=== PATIENT | male | born 1950 | race Caucasian/White ===

== ENCOUNTER 2023-10-01 00:36 | Observation (INO) | payer OTHER ==
[2023-10-01 00:42] VITALS: BMI 25.7
[2023-10-01 01:44] LABS: BASO % 0.3 % (0-2.0); EOS % 0.4 % (0-4.5); HEMATOCRIT 44.7 % (35.4-49); HEMOGLOBIN 15.5 GM/dL (11.7-16.9); LYMPH % 5.7 % (8-40); MCH 30.4 pg (25.7-33.7); MCHC 34.6 g/dl (32.0-35.9); MEAN CELL VOLUME 87.8 fl (80-96); MONO % 5.5 % (3.8-10.2); NEUT % 88.1 % (42.8-82.8); PLATELET COUNT 167 10^3/uL (134-434); RBC 5.09 M/mm3 (4.00-5.60); RDW 13.7 % (11.9-15.9); WHITE BLOOD COUNT 13.7 K/mm3 (4.0-10.0)
[2023-10-01 01:52] LABS: INR 1.09 (0.83-1.09); PROTHROMBIN TIME (PATIENT) 12.6 SEC (9.7-13.0)
[2023-10-01 01:55] LABS: ACTIVATED PTT 30.6 SECONDS (25.2-36.5)
[2023-10-01] MEDS: LORazepam 1 MG TABLET PO ONE (01:57)
[2023-10-01 02:03] LABS: ALBUMIN 4.1 g/dl (3.4-5.0); BLOOD UREA NITROGEN 12.1 mg/dL (7-18); CALCIUM 9.7 mg/dL (8.5-10.1)
[2023-10-01 02:08] LABS: BILIRUBIN,TOTAL 0.7 mg/dL (0.2-1)
[2023-10-01 02:11] LABS: N-TERMINAL BNP 102.2 pg/ml (5-125)
[2023-10-01] MEDS ORDERED: amLODIPine BESYLATE 2.5 MG TABLET (FP) ONE (03:55)
[2023-10-01] MEDS ORDERED: ACETAMINOPHEN INJECTION 100 ML IVPB ONE (04:08)
[2023-10-01] MEDS: ACETAMINOPHEN 1000 MG/100 ML BAG IVPB ONE (04:20)
[2023-10-01] MEDS: amLODIPine BESYLATE 2.5 MG TABLET (FP) PO ONE (04:20)
[2023-10-01] MEDS: POLYETHYLENE GLYCOL (HEALTHYLAX) 3350 17 GM PACKET PO SCH (05:12)
[2023-10-01] MEDS: POLYETHYLENE GLYCOL (HEALTHYLAX) 3350 17 GM PACKET PO ONE (05:28)
[2023-10-01 06:07] LABS: URINE APPEARANCE CLEAR; URINE COLOR YELLOW
[2023-10-01 06:08] LABS: URINE GLUCOSE (UA) NEGATIVE (NEGATIVE)
[2023-10-01 06:09] LABS: PH,URINE 8.5 (5.0-8.0); URINE BILIRUBIN NEGATIVE (NEGATIVE); URINE KETONE NEGATIVE (NEGATIVE); URINE PROTEIN NEGATIVE (NEGATIVE)
[2023-10-01 06:10] LABS: EPI CELLS 1.1 /uL (0-25.1); HYALINE CASTS 0.14 /uL (0-3.1); URINE BACTERIA 0.9 /uL (0-1359); URINE LEUK ESTERASE NEGATIVE (NEGATIVE); URINE NITRITE NEGATIVE (NEGATIVE); URINE RBC 8.7 /uL (0-23.9); URINE WBC 0.7 /uL (0-25.8)
[2023-10-01] MEDS: SODIUM CHLORIDE 0.9% 500 ML INFUS.BAG IV ONE (07:24)
[2023-10-01] MEDS ORDERED: ENOXAPARIN NA (PORCINE) 40 MG/0.4 ML DISP.SYRIN SQ ONE (08:08)
[2023-10-01] MEDS: ENOXAPARIN NA (PORCINE) 40 MG/0.4 ML DISP.SYRIN SQ SCH (10:57)
[2023-10-01 11:19] VITALS: BP 124/69; PULSE 80; RESP 18; TEMP 98.1
[2023-10-01] MEDS ORDERED: DONEPEZIL HCL 5 MG TABLET (FP) PO SCH (22:00)
== END 2023-10-01 11:21 | disposition home or self-care (01) ==
LOC: JER 00:36 → JERBED 06:35
PROVIDERS: ADMIT Internal Medicine; ATTEND Internal Medicine
PROC: 3E033NZ Introduction of Analgesics, Hypnotics, Sedatives into Peripheral Vein, Percutaneous Approach (ICD-10-PCS; principal; 2023-10-01)
PROC: 3E0337Z Introduction of Electrolytic and Water Balance Substance into Peripheral Vein, Percutaneous Approach (ICD-10-PCS; 2023-10-01)
DX: R00.0 Tachycardia, unspecified (principal); F03.90 Unspecified dementia, unspecified severity, without behavioral disturbance, psychotic disturbance, mood disturbance, and anxiety; F41.9 Anxiety disorder, unspecified; I77.810 Thoracic aortic ectasia; Q23.1 Congenital insufficiency of aortic valve; I77.819 Aortic ectasia, unspecified site; Z96.659 Presence of unspecified artificial knee joint
CPT/HCPCS: 0241U-QW; 36415; 71045-TC-FY; 71275-TC; 74174-TC; 80053; 80061; 81003; 83690; 83735; 83880; 84443; 84484; 85025; 85610; 85730; 86850; 86900; 86901; 87086; 93005; 93010; 93306-TC; 96374; 99285-25; G0378; J0131; Q9967